=== PATIENT | female | born 1935 | race African-American/Black ===

== ENCOUNTER 2022-10-14 10:40 | Emergency (ER) | payer MEDICARE, MEDICAID ==
[~2022-10-14] VITALS: Ht 162.6 cm; Wt 78.0 kg
[2022-10-14 10:48] VITALS: BP 151/71
[2022-10-14] MEDS ORDERED: HYDROCODONE/ACETAMINOPHEN 5/325MG TABLET PO ONE (11:45)
== END 2022-10-14 13:47 | disposition home or self-care (01) ==
LOC: ER 11:15
DX: M17.11 Unilateral primary osteoarthritis, right knee (principal); I10 Essential (primary) hypertension
CPT/HCPCS: 73560; 99283